=== PATIENT | male | born 1960 | race Caucasian/White ===

== ENCOUNTER → 2020-11-08 | Outpatient (CLI) | payer OTHER ==
[~2020-11-08] MED LIST: FLOMAX 0.4 MG0.4 MG PO; METOPROLOL TART25 MG PO; MUCINEX600 MG PO; VITAMIN B-12100 MCG PO; VITAMIN C500 M1 PO; VITAMIN D22000 UNIT PO; ZYRTEC10 MG PO
== END ==
LOC: EXRD 09:53
DX: M25.511 Pain in right shoulder (principal); R06.02 Shortness of breath; Z86.16 Personal history of COVID-19
CPT/HCPCS: 71046; 73030

== ENCOUNTER → 2020-12-10 | Outpatient (CLI) | payer OTHER | LOC: ECHO 09:37 | DX: R06.00 Dyspnea, unspecified (principal); R06.02 Shortness of breath | CPT/HCPCS: ECHO; 93306 ==

== ENCOUNTER 2021-05-30 08:44 | Emergency (ER) | payer OTHER ==
[2021-05-30 10:02] LABS: HEMOGLOBIN 14.7 gm/dl (14.0-17.5); RED BLOOD COUNT 4.93 M/UL (4.20-5.50); WHITE BLOOD COUNT 9.7 K/UL (4.5-11.0)
[2021-05-30 10:56] LABS: BUN/CREATININE RATIO 18 (0-10)
[2021-05-30] MEDS ORDERED: TORADOL 10 MG T10 MG PO (11:38)
[2021-05-30] MEDS ORDERED: FLOMAX0.4 MG PO (11:38)
== END 2021-05-30 12:03 | disposition home or self-care (01) ==
LOC: ER1 08:44
PROVIDERS: Physician Assistant
DX: N13.2 Hydronephrosis with renal and ureteral calculous obstruction (principal); E78.5 Hyperlipidemia, unspecified
CPT/HCPCS: 80053; 81001; 85025; 96374; 99284; J1885

== ENCOUNTER → 2021-06-20 | Outpatient (CLI) | payer OTHER ==
[~2021-06-20] MED LIST changes: +FLOMAX0.4 MG PO; +TORADOL 10 MG T10 MG PO
== END ==
LOC: LBRF 11:34
DX: N20.1 Calculus of ureter (principal)

== ENCOUNTER → 2021-11-17 | Outpatient (CLI) | payer OTHER | LOC: CT 14:51 | DX: R91.1 Solitary pulmonary nodule (principal) | CPT/HCPCS: 71260; Q9967 ==

== ENCOUNTER → 2021-12-18 | Outpatient (CLI) | payer OTHER ==
[~2021-12-18] MED LIST changes: +ASPIRIN81 MG PO; +AZELASTINE; +CRESTOR 10 MG T10 MG PO; +FLUTICASONE; +HYDROCODON-ACE1 EAC4 PO; +KEFLEX CAP 250250 MG PO; +MAGNESIUM500 MG PO; +SAW PALMETTO450 MG PO; +VITAMIN D3125 MCG PO
== END ==
LOC: OPSV2 08:11
DX: Z01.810 Encounter for preprocedural cardiovascular examination (principal); Z98.890 Other specified postprocedural states
CPT/HCPCS: 93005

== ENCOUNTER → 2021-12-22 | Day surgery (SDC) | payer OTHER | END | disposition home or self-care (01) | LOC: OR 06:13 | DX: J34.3 Hypertrophy of nasal turbinates (principal); J34.2 Deviated nasal septum; E78.5 Hyperlipidemia, unspecified; J34.89 Other specified disorders of nose and nasal sinuses; I51.9 Heart disease, unspecified; Z87.891 Personal history of nicotine dependence; Z79.82 Long term (current) use of aspirin; Z79.899 Other long term (current) drug therapy | CPT/HCPCS: J0690; J1100; J1170; J2001; J2250; J2405; J2704; J3010 ==